=== PATIENT | female | born 1950 | race Caucasian/White ===

== ENCOUNTER → 2025-07-13 | Outpatient (CLI) | payer MEDICARE ==
[~2025-07-13] MED LIST: ASPI-556 PO; EXEM25TA PO; IOHEXOL 350 MG/ML 100ML INFUS..BTL IV ONE; LEVO100T6 PO; LEVO88TA4 PO; TRIA1CAP87 PO
--- NOTE | 2025-07-14 12:53 | HMCIMG ---
EXAM: CTA Chest, Abdomen, and Pelvis with Intravenous Contrast CLINICAL HISTORY: Thoracic aortic aneurysm, without rupture, unspecified TECHNIQUE: Axial CTA images of the chest, abdomen and pelvis with intravenous contrast. Reformatted images were created and reviewed. CONTRAST: was injected intravenously without incident. COMPARISON: None provided. FINDINGS: VASCULATURE: Aorta: There is ectasia of the ascending aorta, measuring 4.1 cm. 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 The remainder of the aorta is normal in caliber. There is no aortic dissection. There are atherosclerotic calcifications noted in the aorta and its branches. Pulmonary arteries: The pulmonary arteries are adequately opacified. No pulmonary embolism. Great vessels of the aortic arch: No acute finding. No dissection. No arterial occlusion or significant stenosis. Celiac trunk: No acute finding. No occlusion or significant stenosis. Superior mesenteric artery: Atherosclerotic changes at the origin, causing moderate proximal luminal narrowing. No occlusion or critical stenosis. Inferior mesenteric artery: Normal in caliber. Renal arteries: Atherosclerotic changes at the origin of bilateral renal arteries, with mild stenosis in the proximal right renal artery and no significant stenosis in the left renal artery. No occlusion or critical stenosis. Iliac arteries: Atherocalcific changes, not causing significant luminal narrowing. No acute finding. CHEST: Lungs: Emphysematous changes in both lungs with patchy fibrotic strands. Bibasilar atelectasis. Few sub-5 mm soft tissue attenuation pulmonary nodules in both lungs - too small to characterize. Pleural spaces: No pneumothorax evident. No pleural effusions. Heart: No cardiomegaly. No significant pericardial effusion. ABDOMEN: Liver: Unremarkable. No mass. Gallbladder and bile ducts: No calcified stone. No ductal dilation. Pancreas: Unremarkable. No ductal dilation. Spleen: Unremarkable. Adrenals: No mass. Kidneys and ureters: The kidneys enhance symmetrically. No hydronephrosis. No solid mass. Stomach and bowel: Scattered colonic diverticulosis without diverticulitis. No obstruction. No bowel wall thickening. Small fat-containing umbilical hernia. Appendix: The appendix is within normal limits. PELVIS: Bladder: Empty. Reproductive: The uterus is surgically absent. No adnexal lesion. Peritoneum: No free fluid. No free air. Lymph nodes: No lymphadenopathy is evident. Bones: Degenerative spinal along the visualized spine. No acute osseous abnormality. IMPRESSION: Ectasia of the ascending aorta, measuring 4.1 cm. 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 Additional atherosclerotic changes, as described above. No thoracic aortic dissection. No pulmonary embolism. Emphysematous changes in both lungs with patchy fibrotic strands. No pulmonary infiltrates or pleural effusions. No acute abdominal or pelvic pathology. /Tyrone
== END | disposition home or self-care (01) ==
LOC: RAH 09:02
PROVIDERS: ATTEND Internal Medicine
DX: I71.23 Aneurysm of the descending thoracic aorta, without rupture (principal); I71.20 Thoracic aortic aneurysm, without rupture, unspecified; J43.9 Emphysema, unspecified; M47.814 Spondylosis without myelopathy or radiculopathy, thoracic region; K57.30 Diverticulosis of large intestine without perforation or abscess without bleeding; K42.9 Umbilical hernia without obstruction or gangrene; R91.8 Other nonspecific abnormal finding of lung field; I70.1 Atherosclerosis of renal artery; Z90.710 Acquired absence of both cervix and uterus
CPT/HCPCS: 74174; 71275; Q9967